=== PATIENT | male | born 1990 | race African-American/Black ===

== ENCOUNTER 2017-02-08 23:35 | Emergency (ER) | payer SELFPAY ==
--- NOTE | 2017-02-09 00:27 | PHYS DOC ---
Past History Past Medical History: No Pertinent History Past Surgical History: No Surgical History Alcohol Use: Occasionally Drug Use: None Adult General Chief Complaint Chief Complaint: CHEST PAIN HPI HPI Patient is a 26 year old M who presents with chest discomfort. Lito states that he has been having shoulder/chest discomfort over the past 2 weeks. He feels that his pain is dull and intermittent and occasionally radiates to the right or left arm. He does not feel that his symptoms are associated with activity. In fact he does not describe any exacerbating or alleviating factors. He does not have risk factors for coronary artery disease. No family history, no smoking, and no medical diagnoses. He did have a cardiac workup 2 weeks ago in [place] when his symptoms began. Review of Systems Review of Systems Constitutional: Denies fever or chills [] Eyes: Denies change in visual acuity, redness, or eye pain [] HENT: Denies nasal congestion or sore throat [] Respiratory: Denies cough or shortness of breath [] Cardiovascular: No additional information not addressed in HPI [] GI: Denies abdominal pain, nausea, vomiting, bloody stools or diarrhea [] : Denies dysuria or hematuria [] Musculoskeletal: Denies back pain or joint pain [] Integument: Denies rash or skin lesions [] Neurologic: Denies headache, focal weakness or sensory changes [] Endocrine: Denies polyuria or polydipsia [] Family History Family History No family history of coronary artery disease Current Medications Current Medications None Allergies Allergies Allergies Coded Allergies Type Severity Reaction Last Updated Verified No Known Allergies Allergy Unknown 02/09/17 Yes Physical Exam Physical Exam Constitutional: Well developed, well nourished, no acute distress, non-toxic appearance. [] HENT: Normocephalic, atraumatic, bilateral external ears normal, oropharynx moist, no oral exudates, nose normal. [] Eyes: PERRLA, EOMI, conjunctiva normal, no discharge. [] Neck: Normal range of motion, no tenderness, supple, no stridor. [] Cardiovascular:Heart rate regular rhythm, no murmur [] Lungs & Thorax: Bilateral breath sounds clear to auscultation [] Abdomen: Bowel sounds normal, soft, no tenderness, no masses, no pulsatile masses. [] Skin: Warm, dry, no erythema, no rash. [] Back: No tenderness, no CVA tenderness. [] Extremities: No tenderness, no cyanosis, no clubbing, ROM intact, no edema. [] Neurologic: Alert and oriented X 3, normal motor function, normal sensory function, no focal deficits noted. [] Psychologic: Affect normal, judgement normal, mood normal. [] Current Patient Data Vital Signs Vital Signs Date Time Temp Pulse Resp B/P (MAP) Pulse Ox O2 Delivery O2 Flow Rate FiO2 02/09/17 00:14 71 20 147/90 (109) 97 Room Air 02/08/17 23:47 98.3 Lab Results Laboratory Tests Test 02/09/17 00:05 White Blood Count 7.0 x10^3/uL (4.0-11.0) Red Blood Count 5.40 x10^6/uL (4.30-5.70) Hemoglobin 15.8 g/dL (13.0-17.5) Hematocrit 44.8 % (39.0-53.0) Mean Corpuscular Volume 83 fL (79-100) Mean Corpuscular Hemoglobin 29 pg (25-35) Mean Corpuscular Hemoglobin Concent 35 g/dL (31-37) Red Cell Distribution Width 13.2 % (11.5-14.5) Platelet Count 237 x10^3/uL (140-400) Sodium Level 141 mmol/L (136-145) Potassium Level 3.9 mmol/L (3.5-5.1) Chloride Level 103 mmol/L (98-107) Carbon Dioxide Level 33 mmol/L (21-32) Anion Gap 5 (6-14) Blood Urea Nitrogen 12 mg/dL (8-26) Creatinine 1.2 mg/dL (0.7-1.3) Estimated GFR (Cockcroft-Gault) 72.1 Glucose Level 96 mg/dL (70-99) Calcium Level 8.3 mg/dL (8.5-10.1) Troponin I Quantitative < 0.017 ng/mL (0-0.055) EKG EKG Normal sinus rhythm, early repolarization noted. No other significant ST changes noted Course & Med Decision Making Course & Med Decision Making Pertinent Labs and Imaging studies reviewed. (See chart for details) Lito has no risk factors and atypical chest pain that is not consistent with cardiac pain. He has had a recent workup which was negative. Hospitalization was offered and declined. Teddy verbalized understanding that labs may be falsely normal within the first 12 hours of injury to his heart. He also expressed understanding that admission would mitigate the risk of false negatives. He expressed desire to go home without further management Dragon Disclaimer Dragon Disclaimer This chart was dictated in whole or in part using Voice Recognition software in a busy, high-work load, and often noisy Emergency Department environment. It may contain unintended and wholly unrecognized errors or omissions. Departure Departure: Impression: Primary Impression: Chest pain Disposition: HOME, SELF-CARE Condition: STABLE Referrals: PCP,NO (PCP) Patient Instructions: Chest Pain (Nonspecific) Additional Instructions: Lito was seen in the emergency room for chest/shoulder discomfort. No emergency medical condition was found on history and physical exam. He did have a normal labs and EKG. He was advised to return to the emergency room if he developed no worsening symptoms. He was advised follow-up with his primary care doctor or clinical secretary as soon as possible for further management of his condition Problem Qualifiers Primary Impression: Chest pain Chest pain type: unspecified Qualified Codes: R07.9 - Chest pain, unspecified NORA ANAYA MD Feb 09, 2017 00:27
[2017-02-09 00:32] LABS: CALCIUM 8.3 mg/dL (8.5-10.1); CREATININE 1.2 mg/dL (0.7-1.3); GFR 72.1; POTASSIUM 3.9 mmol/L (3.5-5.1)
[2017-02-09 00:40] LABS: HEMATOCRIT 44.8 % (39.0-53.0); HEMOGLOBIN 15.8 g/dL (13.0-17.5); RED BLOOD COUNT 5.4 x10^6/uL (4.30-5.70); RED CELL DISTRIBUTION WIDTH 13.2 % (11.5-14.5)
[2017-02-09 00:48] VITALS: BP 118/72
--- NOTE | 2017-02-09 06:35 | EKG ---
[address] [address] Test Date: 2017-02-08 Test Time: 23:48:07 Pat Name: SAIRA MOMIN Department: Room: Gender: M Dental Surgery Doctor: MELIZA : 1990 Requested By: NORA ANAYA Order Number: [id number] Reading MD: Measurements Intervals [place] Rate: 64 P: 59 NM: 160 QRS: 82 QRSD: 84 T: 81 QT: 402 QTc: 414 Interpretive Statements SINUS RHYTHM QRS(T) CONTOUR ABNORMALITY CONSIDER ANTEROLATERAL MYOCARDIAL DAMAGE RI6.01 Unconfirmed report No previous ECG available for comparison
== END 2017-02-09 01:00 | disposition home or self-care (01) ==
LOC: ER 23:35
DX: R07.89 Other chest pain (principal)
CPT/HCPCS: 36415; 80048; 84484; 85027; 93005; 99285-25